=== PATIENT | male | born 1995 | race Caucasian/White ===

== ENCOUNTER 2018-03-07 09:36 | Emergency (ER) | payer OTHER ==
[~2018-03-07] VITALS: Ht 175.3 cm; Wt 77.3 kg
[2018-03-07] MEDS ORDERED: BENZOCAINE/MENTHOL LOZENGE [8 LOZENGES/PACKET] PO ONE (10:45)
[2018-03-07] MEDS ORDERED: KETOROLAC TROMETHAMINE 30 MG/ML VIAL IM ONE (10:45)
[2018-03-07 12:00] VITALS: BP 127/79
== END 2018-03-07 12:13 | disposition home or self-care (01) ==
LOC: EMS 09:37
DX: J02.0 Streptococcal pharyngitis (principal); M54.5 Low back pain; R51 Headache; R13.10 Dysphagia, unspecified; K21.9 Gastro-esophageal reflux disease without esophagitis; I10 Essential (primary) hypertension; Z91.013 Allergy to seafood
CPT/HCPCS: 87430; 96372; 99283; J1885

== ENCOUNTER 2018-07-19 23:50 | Emergency (ER) | payer OTHER ==
[~2018-07-19] VITALS: Ht 172.7 cm; Wt 102.3 kg
[2018-07-20 01:10] VITALS: BP 109/70
[2018-07-20] MEDS ORDERED: DiphenhydrAMINE HCL 50 MG CAPSULE PO ONE (01:45)
== END 2018-07-20 02:05 | disposition home or self-care (01) ==
LOC: EMS 23:50
DX: T78.1XXA Other adverse food reactions, not elsewhere classified, initial encounter (principal); F17.210 Nicotine dependence, cigarettes, uncomplicated; F32.9 Major depressive disorder, single episode, unspecified; K21.9 Gastro-esophageal reflux disease without esophagitis; F90.9 Attention-deficit hyperactivity disorder, unspecified type; F12.90 Cannabis use, unspecified, uncomplicated; Z71.6 Tobacco abuse counseling; Z87.11 Personal history of peptic ulcer disease; Z91.013 Allergy to seafood; Y92.89 Other specified places as the place of occurrence of the external cause
CPT/HCPCS: 99282; 99406

== ENCOUNTER 2019-01-04 19:15 | Emergency (ER) | payer OTHER ==
[~2019-01-04] VITALS: Ht 172.7 cm; Wt 99.5 kg
[2019-01-04] MEDS ORDERED: KETOROLAC TROMETHAMINE 60 MG/2 ML VIAL IM ONE (21:30)
[2019-01-04] MEDS ORDERED: ONDANSETRON HCL 4 MG TABLET PO ONE (21:30)
[2019-01-04 21:51] LABS: BASOPHILS % (AUTO) 0.7 % (0.0-2.0); EOSINOPHILS % (AUTO) 0.1 % (1.0-6.0); HEMATOCRIT 49.2 % (41-53); HEMOGLOBIN 17.1 g/dL (13.5-17.5); LYMPHOCYTES # (AUTO) 2.3 K/uL (1.0-4.8); LYMPHOCYTES % (AUTO) 15.3 % (22.0-44.0); MEAN CORPUSCULAR HEMOGLOBIN 28.5 pg (26.0-34.0); MEAN CORPUSCULAR HGB CONC 34.8 G/dL (31.0-37.0); MEAN CORPUSCULAR VOLUME 82 fL (80-100); MONOCYTES # (AUTO) 1.5 K/uL (0.1-1.0); MONOCYTES % (AUTO) 10.2 % (2.0-9.0); NEUTROPHILS % (AUTO) 73.7 % (40.0-70.0); PLATELET COUNT (AUTO) 265 K/uL (150-450); RED BLOOD CELL COUNT(AUTO) 6.01 MIL/uL (4.50-5.90); RED CELL DISTRIBUTION WIDTH 13.2 % (11.5-14.5)
[2019-01-04 22:01] LABS: ANION GAP 9 mmol/L (8-16); CARBON DIOXIDE 32 mmol/L (22-29); CHLORIDE 98 mmol/L (98-107); CREATININE 1.12 mg/dL (0.60-1.30); GLOMERULAR FILTR. RATE CALC > 60 mL/min (>60); GLUCOSE,RANDOM 107 mg/dL (70-110); POTASSIUM 3.7 mmol/L (3.5-5.1); SODIUM SERUM 139 mmol/L (136-145); UREA NITROGEN, BLOOD 19 mg/dL (7-18)
[2019-01-04 22:07] LABS: ALANINE AMINOTRANSFERASE 48 U/L (12-78); ALBUMIN 4.4 g/dL (3.4-5.0); ALKALINE PHOSPHATASE 100 U/L (46-116); ASPARTATE AMINOTRANSFERASE 21 U/L (15-37); BILIRUBIN,TOTAL 0.6 mg/dL (0.1-1.0); LIPASE 179 U/L (73-393); TOTAL PROTEIN, SERUM 8.3 g/dL (6.4-8.2)
[2019-01-04 22:30] VITALS: BP 129/78
== END 2019-01-04 23:01 | disposition home or self-care (01) ==
LOC: EMS 19:16
DX: K21.9 Gastro-esophageal reflux disease without esophagitis (principal); G89.29 Other chronic pain; M54.5 Low back pain; F17.210 Nicotine dependence, cigarettes, uncomplicated; F12.90 Cannabis use, unspecified, uncomplicated; F32.9 Major depressive disorder, single episode, unspecified; Z91.013 Allergy to seafood
CPT/HCPCS: 36415; 74176; 80053; 81002; 83690; 85025; 96372; 99284; J1885; Q0162

== ENCOUNTER 2019-04-13 08:37 | Emergency (ER) | payer OTHER ==
[~2019-04-13] VITALS: Ht 172.7 cm; Wt 106.4 kg
[2019-04-13 09:42] LABS: BASOPHILS % (AUTO) 0.7 % (0.0-2.0); EOSINOPHILS % (AUTO) 0.1 % (1.0-6.0); HEMATOCRIT 47.9 % (41-53); HEMOGLOBIN 16.3 g/dL (13.5-17.5); LYMPHOCYTES # (AUTO) 1.9 K/uL (1.0-4.8); LYMPHOCYTES % (AUTO) 21.9 % (22.0-44.0); MEAN CORPUSCULAR HEMOGLOBIN 27.8 pg (26.0-34.0); MEAN CORPUSCULAR HGB CONC 34.1 G/dL (31.0-37.0); MEAN CORPUSCULAR VOLUME 82 fL (80-100); MONOCYTES # (AUTO) 0.5 K/uL (0.1-1.0); MONOCYTES % (AUTO) 5.7 % (2.0-9.0); NEUTROPHILS # (AUTO) 6.2 K/uL (1.8-7.7); NEUTROPHILS % (AUTO) 71.6 % (40.0-70.0); PLATELET COUNT (AUTO) 283 K/uL (150-450); RED BLOOD CELL COUNT(AUTO) 5.88 MIL/uL (4.50-5.90); RED CELL DISTRIBUTION WIDTH 13.3 % (11.5-14.5)
[2019-04-13 09:46] LABS: ANION GAP 14 mmol/L (8-16); CALCIUM, TOTAL 9.2 mg/dL (8.8-10.5); CARBON DIOXIDE 24 mmol/L (22-29); CHLORIDE 104 mmol/L (98-107); GLOMERULAR FILTR. RATE CALC > 60 mL/min (>60); GLUCOSE,RANDOM 107 mg/dL (70-110); POTASSIUM 3.7 mmol/L (3.5-5.1); SODIUM SERUM 142 mmol/L (136-145); UREA NITROGEN, BLOOD 16 mg/dL (7-18)
[2019-04-13 09:53] LABS: ALANINE AMINOTRANSFERASE 42 U/L (12-78); ALBUMIN 4.4 g/dL (3.4-5.0); ALKALINE PHOSPHATASE 114 U/L (46-116); ASPARTATE AMINOTRANSFERASE 24 U/L (15-37); BILIRUBIN,TOTAL 0.5 mg/dL (0.1-1.0); LIPASE 119 U/L (73-393); TOTAL PROTEIN, SERUM 8.1 g/dL (6.4-8.2)
[2019-04-13 10:35] LABS: APPEARANCE,URINE CLEAR (CLEAR); BILIRUBIN,URINE NEGATIVE (NEGATIVE); GLUCOSE, URINE (UA) NEGATIVE (NEGATIVE); KETONES,URINE TRACE mg/dL (NEGATIVE); LEUKOCYTE ESTERASE ,URINE NEGATIVE (NEGATIVE); NITRATE,URINE NEGATIVE (NEGATIVE); OCCULT BLOOD,URINE NEGATIVE (NEGATIVE); PROTEIN,URINE POS 1+ (NEGATIVE); UROBILINOGEN,URINE 0.2 mg/dL (<=1.0)
[2019-04-13] MEDS ORDERED: FAMOTIDINE 10 MG/ML 2 ML VIAL IVP ONE (10:45)
[2019-04-13] MEDS ORDERED: ONDANSETRON HCL 4 MG/2 ML VIAL IVP ONE (10:45)
[2019-04-13] MEDS ORDERED: SODIUM CHLORIDE 0.9% 1,000 ML IV ONE (10:45)
[2019-04-13 10:47] LABS: BACTERIA,URINE None Seen /HPF (None Seen); RBC,URINE 0-2 /HPF (0-2); SQUAMOUS EPITHELIAL CELL,UR Few /LPF (None Seen); WBC,URINE 0-2 /HPF (0-5)
[2019-04-13 12:04] VITALS: BP 121/74
== END 2019-04-13 12:25 | disposition home or self-care (01) ==
LOC: EMS 08:41
DX: K22.6 Gastro-esophageal laceration-hemorrhage syndrome (principal); K27.9 Peptic ulcer, site unspecified, unspecified as acute or chronic, without hemorrhage or perforation; K21.9 Gastro-esophageal reflux disease without esophagitis; F29 Unspecified psychosis not due to a substance or known physiological condition; F90.9 Attention-deficit hyperactivity disorder, unspecified type; F12.90 Cannabis use, unspecified, uncomplicated; Z91.013 Allergy to seafood
CPT/HCPCS: 36415; 74022; 80053; 81001; 83690; 85025; 93005; 96361; 96374; 96375; 99284; J2405; J3490; J7030

== ENCOUNTER 2019-08-24 12:23 | Emergency (ER) | payer OTHER ==
[~2019-08-24] VITALS: Ht 172.7 cm; Wt 100.0 kg
[2019-08-24] MEDS ORDERED: CALC500T7 PO (12:45)
[2019-08-24 13:51] VITALS: BP 128/75
[2019-08-24] MEDS ORDERED: MethylPREDNISolone SOD SUCC 125 MG/2 ML VIAL IM ONE (14:00)
== END 2019-08-24 14:20 | disposition home or self-care (01) ==
LOC: EMS 12:23
DX: J03.90 Acute tonsillitis, unspecified (principal); F10.10 Alcohol abuse, uncomplicated; F12.90 Cannabis use, unspecified, uncomplicated; F32.9 Major depressive disorder, single episode, unspecified; I10 Essential (primary) hypertension; F90.9 Attention-deficit hyperactivity disorder, unspecified type; Z79.899 Other long term (current) drug therapy; Z91.013 Allergy to seafood
CPT/HCPCS: 96372; 99283; J2930

== ENCOUNTER 2020-04-08 10:18 | Emergency (ER) | payer OTHER ==
[~2020-04-08] VITALS: Ht 172.7 cm; Wt 86.4 kg
[~2020-04-08 10:18] MED LIST: CALC500T7 PO
[2020-04-08] MEDS ORDERED: IBUPROFEN 600 MG TABLET PO ONE (10:45)
[2020-04-08 13:00] VITALS: BP 123/77
== END 2020-04-08 13:33 | disposition home or self-care (01) ==
LOC: EMS 10:19
DX: S93.401A Sprain of unspecified ligament of right ankle, initial encounter (principal); M79.604 Pain in right leg; F32.9 Major depressive disorder, single episode, unspecified; K21.9 Gastro-esophageal reflux disease without esophagitis; F12.90 Cannabis use, unspecified, uncomplicated; Z91.013 Allergy to seafood; W10.9XXA Fall (on) (from) unspecified stairs and steps, initial encounter; Y93.89 Activity, other specified; Y92.89 Other specified places as the place of occurrence of the external cause; Y99.8 Other external cause status
CPT/HCPCS: 29515

== ENCOUNTER 2020-08-02 12:18 | Emergency (ER) | payer OTHER ==
[~2020-08-02] VITALS: Ht 172.7 cm; Wt 104.5 kg
[2020-08-02 12:22] VITALS: BP 119/75
[2020-08-02] MEDS ORDERED: ACETAMINOPHEN 500 MG TABLET PO ONE (13:15)
== END 2020-08-02 14:19 | disposition home or self-care (01) ==
LOC: EMS 12:18
DX: R05 Cough (principal); R53.83 Other fatigue; Z20.828 Contact with and (suspected) exposure to other viral communicable diseases
CPT/HCPCS: 99283; U0003

== ENCOUNTER 2020-10-15 07:42 | Emergency (ER) | payer OTHER ==
[~2020-10-15] VITALS: Ht 172.7 cm; Wt 90.9 kg
[2020-10-15] MEDS ORDERED: SODIUM CHLORIDE 0.9% 1,000 ML IV ONE (08:00)
[2020-10-15 08:30] LABS: COVID AG,FIA SOURCE NASOPHARYNGEAL
[2020-10-15 08:37] LABS: BASOPHILS % (AUTO) 0.2 % (0.0-2.0); EOSINOPHILS % (AUTO) 0 % (1.0-6.0); HEMATOCRIT 46.3 % (41-53); HEMOGLOBIN 15.5 g/dL (13.5-17.5); LYMPHOCYTES # (AUTO) 0.9 K/uL (1.0-4.8); LYMPHOCYTES % (AUTO) 3.6 % (22.0-44.0); MEAN CORPUSCULAR HGB CONC 33.4 G/dL (31.0-37.0); MEAN CORPUSCULAR VOLUME 84 fL (80-100); MONOCYTES # (AUTO) 1.8 K/uL (0.1-1.0); MONOCYTES % (AUTO) 7.7 % (2.0-9.0); NEUTROPHILS # (AUTO) 20.9 K/uL (1.8-7.7); PLATELET COUNT (AUTO) 213 K/uL (150-450); RED BLOOD CELL COUNT(AUTO) 5.52 MIL/uL (4.50-5.90); RED CELL DISTRIBUTION WIDTH 12.7 % (11.5-14.5)
[2020-10-15 08:48] LABS: NEUTROPHILS % (AUTO) 88.5 % (40.0-70.0)
[2020-10-15 08:53] LABS: ANION GAP 10 mmol/L (8-16); CALCIUM, TOTAL 8.9 mg/dL (8.8-10.5); CARBON DIOXIDE 26 mmol/L (22-29); CHLORIDE 99 mmol/L (98-107); CREATININE 1.04 mg/dL (0.60-1.30); GLOMERULAR FILTR. RATE CALC > 60 mL/min (>60); GLUCOSE,RANDOM 114 mg/dL (70-110); POTASSIUM 3.7 mmol/L (3.5-5.1); SODIUM SERUM 135 mmol/L (136-145); UREA NITROGEN, BLOOD 16 mg/dL (7-18)
[2020-10-15] MEDS ORDERED: ACETAMINOPHEN 500 MG TABLET PO ONE (09:00)
[2020-10-15] MEDS ORDERED: KETOROLAC TROMETHAMINE 30 MG/ML VIAL IVP ONE (09:00)
[2020-10-15] MEDS ORDERED: SODIUM CHLORIDE 0.9% 2,200 ML IV ONE (09:00)
[2020-10-15 09:14] LABS: INFLUENZA TYPE A NEGATIVE FOR TYPE A (NEGATIVE); INFLUENZA TYPE B POSITIVE FOR TYPE B (NEGATIVE)
[2020-10-15] MEDS ORDERED: OSELTAMIVIR PHOSPHATE 75 MG CAPSULE PO ONE (09:30)
[2020-10-15 10:09] VITALS: BP 131/89
== END 2020-10-15 10:29 | disposition home or self-care (01) ==
LOC: EMS 07:42
DX: J10.1 Influenza due to other identified influenza virus with other respiratory manifestations (principal); M79.10 Myalgia, unspecified site; F32.9 Major depressive disorder, single episode, unspecified; K21.9 Gastro-esophageal reflux disease without esophagitis; F12.90 Cannabis use, unspecified, uncomplicated; Z20.828 Contact with and (suspected) exposure to other viral communicable diseases; Z91.013 Allergy to seafood
CPT/HCPCS: 36415; 71045; 80048; 85025; 87426; 87804; 96361; 96374; 99284; J1885; J7030; U0003

== ENCOUNTER 2021-03-15 09:47 | Emergency (ER) | payer OTHER ==
[~2021-03-15] VITALS: Ht 175.3 cm; Wt 106.8 kg
[2021-03-15 10:50] VITALS: BP 118/66
== END 2021-03-15 11:05 | disposition home or self-care (01) ==
LOC: EMS 09:50
DX: S93.402A Sprain of unspecified ligament of left ankle, initial encounter (principal); K21.9 Gastro-esophageal reflux disease without esophagitis; F17.210 Nicotine dependence, cigarettes, uncomplicated; F12.90 Cannabis use, unspecified, uncomplicated; F32.9 Major depressive disorder, single episode, unspecified; X58.XXXA Exposure to other specified factors, initial encounter; Y93.89 Activity, other specified; Y92.89 Other specified places as the place of occurrence of the external cause; Y99.8 Other external cause status
CPT/HCPCS: 99283

== ENCOUNTER 2021-12-04 06:23 | Emergency (ER) | payer OTHER ==
[~2021-12-04] VITALS: Ht 170.2 cm; Wt 104.0 kg
[2021-12-04 06:26] VITALS: BP 130/62
[2021-12-04] MEDS ORDERED: ACET-784 PO (06:29)
== END 2021-12-04 07:44 | disposition left against medical advice (07) ==
LOC: EMS 06:23
DX: R50.9 Fever, unspecified (principal); Z53.21 Procedure and treatment not carried out due to patient leaving prior to being seen by health care provider